=== PATIENT | male | born 1970 | race Caucasian/White ===

== ENCOUNTER → 2017-06-18 | Outpatient (CLI) | payer OTHER | LOC: FIMAGING 09:01 | PROVIDERS: ATTEND Family Medicine | DX: M25.511 Pain in right shoulder (principal) ==

== ENCOUNTER 2017-08-07 16:05 | Inpatient (IN) | payer OTHER ==
--- NOTE | 2017-08-07 16:16 | EDPHY ---
H & P Stated Complaint: [place]/HAD MRI/DR SAID WAS ABNORMAL Time Seen by Provider: 08/07/17 16:16 HPI/ROS: CHIEF COMPLAINT: Headache, abnormal outpatient MRI HISTORY OF PRESENT ILLNESS: The patient is referred to the emergency department by his neurologist Dr. Wilson. The patient has had a 5 month history of a chronic daily headache. The patient has endorse some symptoms of blurry vision in the morning. He reportedly has been using ibuprofen every morning for management of his symptoms. The patient does tell me he has had some very mild symptoms of impaired fluency of his speech. He was scheduled to see an category development analyst for evaluation of his visual complaints next week. The patient was noted to have a very large subfalcine mass noted on his MRI. REVIEW OF SYSTEMS: A comprehensive 10 point review of systems is otherwise negative aside from elements mentioned in the history of present illness. Source: Patient - Personal History Current Tetanus/Diphtheria Vaccine: Yes - Medical/Surgical History Hx Asthma: No Hx Chronic Respiratory Disease: No Hx Diabetes: No Hx Cardiac Disease: No Hx Renal Disease: No Hx Cirrhosis: No Hx Alcoholism: No Hx HIV/AIDS: No Hx Splenectomy or Spleen Trauma: No Other PMH: L ACL - Social History Smoking Status: Never smoked - Physical Exam Exam: General Appearance: Alert, no distress Eyes: Pupils equal and round no pallor or injection ENT, Mouth: Mucous membranes moist Respiratory: There are no retractions, lungs are clear to auscultation Cardiovascular: Regular rate and rhythm Gastrointestinal: Abdomen is soft and nontender, no masses, bowel sounds normal Neurological: Alert and oriented x4, 5/5 strength noted all 4 extremities, cranial nerves 2-12 intact, no gross visual field deficits present, speech fluent Skin: Warm and dry, no rashes Musculoskeletal: Neck is supple nontender Extremities: symmetrical, full range of motion Psychiatric: Patient is oriented X 3, there is no agitation Constitutional: Initial Vital Signs Temperature (C) 36.3 C 08/07/17 16:10 Heart Rate 98 08/07/17 16:10 Respiratory Rate 16 08/07/17 16:10 Blood Pressure 160/103 H 08/07/17 16:10 O2 Sat (%) 96 08/07/17 16:10 O2 Delivery Mode Room Air Allergies/Adverse Reactions: No Known Allergies Allergy (Verified 08/07/17 16:09) Home Medications: Medication Instructions Recorded Lisinopril 08/07/17 Medical Decision Making - Diagnostics Imaging Results: Brain MRI: Impression: 1. 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 2. Rightward subfalcine herniation and early uncal herniation. ED Course/Re-evaluation: I discussed the case with his neurologist prior to arrival. I reviewed his MRI after he presented to the emergency department. I consulted with Dr. Jorge A Pickens from Neurosurgery. The patient had an IV established. Preoperative screening labs have been ordered. The patient did received 10 mg of IV Decadron. The patient was seen in consultation by Dr. Christopher Banks. The patient received an additional 1 g of Keppra. The patient will be admitted to the neurosurgical service for biopsy and further workup. Differential Diagnosis: Differential diagnosis considered includes brain tumor, intracranial hemorrhage , stroke - Data Points Laboratory Results: Laboratory Results 08/07/17 16:25 08/07/17 16:25 08/07/17 08/07/17 08/07/17 16:30 16:25 16:25 WBC 7.81 10^3/uL 10^3/uL (3.80-9.50) RBC 5.09 10^6/uL 10^6/uL (4.40-6.38) Hgb 16.1 g/dL g/dL (13.7-17.5) Hct 44.6 % % (40.0-51.0) MCV 87.6 fL fL (81.5-99.8) MCH 31.6 pg pg (27.9-34.1) MCHC 36.1 g/dL g/dL (32.4-36.7) RDW 12.1 % % (11.5-15.2) Plt Count 286 10^3/uL 10^3/uL (150-400) MPV 10.1 fL fL (8.7-11.7) Neut % (Auto) 72.9 % % (39.3-74.2) Lymph % (Auto) 19.1 % % (15.0-45.0) [place] % (Auto) 5.6 % % (4.5-13.0) Eos % (Auto) 1.5 % % (0.6-7.6) Baso % (Auto) 0.5 % % (0.3-1.7) Nucleat RBC Rel Count 0.0 % % (0.0-0.2) Absolute Neuts (auto) 5.69 10^3/uL 10^3/uL (1.70-6.50) Absolute Lymphs (auto) 1.49 10^3/uL 10^3/uL (1.00-3.00) Absolute Monos (auto) 0.44 10^3/uL 10^3/uL (0.30-0.80) Absolute Eos (auto) 0.12 10^3/uL 10^3/uL (0.03-0.40) Absolute Basos (auto) 0.04 10^3/uL 10^3/uL (0.02-0.10) Absolute Nucleated RBC 0.00 10^3/uL 10^3/uL (0-0.01) Immature Gran % 0.4 % % (0.0-1.1) Immature Gran # 0.03 10^3/uL 10^3/uL (0.00-0.10) PT 13.2 SEC SEC (12.0-15.0) INR 1.01 (0.83-1.16) APTT 26.6 SEC SEC (23.0-38.0) Sodium 142 mEq/L mEq/L (134-144) Potassium 3.8 mEq/L mEq/L (3.5-5.2) Chloride 102 mEq/L mEq/L (97-110) Carbon Dioxide 26 mEq/l mEq/l (22-31) Anion Gap 14 mEq/L mEq/L (8-16) BUN 20 mg/dL mg/dL (7-23) Creatinine 1.0 mg/dL mg/dL (0.7-1.3) Estimated GFR > 60 Glucose 118 mg/dL H mg/dL (70-100) Calcium 10.4 mg/dL mg/dL (8.5-10.4) Medications Given: Discontinued Medications Dexamethasone (Decadron Injection) 10 mg IVP EDNOW ONE Stop: 08/07/17 16:42 Last Admin: 08/07/17 16:44 Dose: 10 mg Departure - Departure Disposition: [facility] Acute 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
[2017-08-07 16:41] LABS: % IMMATURE GRANULYOCYTES 0.4 % (0.0-1.1); ABSOLUTE IMMATURE GRANULOCYTES 0.03 10^3/uL (0.00-0.10); ADD DIFF? NO; ADD MORPH? NO; ADD SCAN? NO; ATYPICAL LYMPHOCYTE FLAG 0 (0-99); FRAGMENT RBC FLAG 0 (0-99); HEMATOCRIT 44.6 % (40.0-51.0); HEMOGLOBIN 16.1 g/dL (13.7-17.5); LEFT SHIFT FLG 0 (0-99); LIPEMIA HEMOLYSIS FLAG 90 (0-99); MEAN CELL HEMOGLOBIN 31.6 pg (27.9-34.1); MEAN CELL HEMOGLOBIN CONCENTR. 36.1 g/dL (32.4-36.7); MEAN CELL VOLUME 87.6 fL (81.5-99.8); MEAN PLATELET VOLUME 10.1 fL (8.7-11.7); PLATELET CLUMPS FLAG 0 (0-99); PLATELET COUNT 286 10^3/uL (150-400); RED BLOOD CELL COUNT 5.09 10^6/uL (4.40-6.38); RED CELL DISTRIBUTION WIDTH 12.1 % (11.5-15.2)
[2017-08-07] MEDS ORDERED: DEXAMETHASONE 10 MG/ML VIAL IVP ONE (16:41)
[2017-08-07 17:03] LABS: ANION GAP 14 mEq/L (8-16); CALCIUM 10.4 mg/dL (8.5-10.4); CARBON DIOXIDE 26 mEq/l (22-31); CHLORIDE 102 mEq/L (97-110); GLOMERULAR FILTRATION RATE > 60; GLUCOSE 118 mg/dL (70-100); POTASSIUM 3.8 mEq/L (3.5-5.2); SODIUM 142 mEq/L (134-144)
[2017-08-07 17:09] LABS: APTT 26.6 SEC (23.0-38.0); INR 1.01 (0.83-1.16); PROTIME(PATIENT) 13.2 SEC (12.0-15.0)
[2017-08-07] MEDS ORDERED: ACETAMINOPHEN 325 MG TAB PO PRN (17:10)
[2017-08-07] MEDS ORDERED: NS 1,000 ML IV SCH (17:15)
[2017-08-07] MEDS ORDERED: levETIRAcetam 1,000 MG in NS 100 ML IV ONE (17:17)
[2017-08-07] MEDS ORDERED: IOPAMIDOL (ISOVUE-300) 100 ML BTL ONE (17:36)
--- NOTE | 2017-08-07 18:40 | GHP ---
[f rep st] HISTORY AND PHYSICAL DATE OF ADMISSION: 08/07/2017 CHIEF COMPLAINT: Headache with abnormal outpatient MRI. The patient was seen in the Emergency Department, both by myself and Dr. Banks, at 1645 hours. One hour was spent with the patient in room 8 reviewing through history, physical exam, and imaging. HISTORY OF PRESENT ILLNESS: The patient is, otherwise, a healthy 46-year-old male who was referred t o the Emergency Department by his neurologist, Dr. Wilson. The patient has had a 5-month history of chronic daily headaches. The patient also states that he has some blurry vision in the morning that takes a little while for it to clear up. He reportedly has been using ibuprofen every morning for m anagement of his symptoms. The patient does tell the emergency room staff, as well as us, that he mckeon s had some mild symptoms with impaired fluency of his speech. He feels that he has had more difficul t issues with concentration over the past year, as well as some issues with getting the correct name of his child. He has 3 children. He saw his PCP. There have been some issues with trying to get ap proval for an MRI that was ordered by his PCP, and was forced to see a specialist, and the specialist did have some issues with getting the MRI, but eventually this was obtained. The MRI showed a very large subfalcine mass noted on the MRI. He was scheduled to see an ship's pilot for evaluation of some visual complaints this next week. The patient was seen in the Emergency Department in room 8, both by myself and Dr. Banks. His was present as well. REVIEW OF SYSTEMS: A comprehensive 10-point review of systems was performed. Otherwise, negative as davion from what is mentioned in HPI. The patient does also state that he has some chronic back pain, b ut no significant radicular symptoms. He does state that on some imaging he had noticed a mass in hi s right kidney, but has not had any further evaluation per reports. PAST MEDICAL HISTORY: Torn left ACL. PAST SURGICAL HISTORY: Left ACL reconstruction. MEDICATIONS: Lisinopril. Please see med rec form. ALLERGIES: No known drug allergies. FAMILY HISTORY: No reported history of brain mass or tumor. IMMUNIZATIONS: Reported up to date. TRAVEL: The patient does frequently travel from here to the [place]. PHYSICAL EXAMINATION: GENERAL: This is an awake, alert, oriented male, in no acute distress. He is able to follow commands appropriately. VITAL SIGNS: Most recent blood pressure 160/103, with a MAP of 122, heart rate of 98; 16 respirations, 96% on room air, temperature 36.3. HEENT. Head is normo cephalic, atraumatic. Pupils are equal, round, reactive to light. EOMIs intact. Full visual james by confrontation. Ears are patent. Nose is patent. NECK: Soft and supple. No midline tenderness . Full range of motion in flexion, extension, lateral bending, rotation. RESPIRATORY/CARDIAC: No r ales, rhonchi, wheeze, or rub. Clear to auscultation bilaterally. ABDOMEN: Soft, nontender. No pe ritoneal signs. AND RECTAL: Deferred. NEURO: The patient is awake, alert, oriented to name, pl shea, location, date, time, and situation. Memory is intact to immediate, past, and current events. Speech no aphasia, dysarthria, dysphonia at this time. Cranial nerves 2-12 grossly intact. Motor, t he patient has 5/5 strength in all muscle groups of bilateral upper and lower extremities to include deltoids, biceps, triceps, brachioradialis, wrist flexion, extensors, staff psychologist, intrinsic fingers, iliops oas, quadriceps, hamstring, plantar flexion, dorsiflexion, EHL testing. Sensation is grossly intact to light touch throughout all dermatome distributions upper extremities. Negative straight leg raise . Negative NATHALIA test. Reflexes of biceps, triceps, brachioradialis, knee jerk, and ankle jerk are 2+/4. Toes are downgoing bilaterally. Vizcaino's negative. Babinski negative. No evidence of clonu s. The patient does have a slight right pronator drift. MEDICAL DECISION MAKING/DIAGNOSTIC STUDIES: Laboratory tests obtained 08/07/2017, shows a white coun t of 7.1, H and H of 16.1 and 44.6, and platelet count of 286. Coags on 08/07/2017, shows a PT of 13 .2, INR of 1.01, and PTT of 26.6. Chemistry on 08/07/2017, shows sodium 142, potassium 3.8, chloride 102, CO2 26, BUN 20, creatinine 1.0, and a glucose of 118. DIAGNOSTIC STUDIES: MRI of the brain with and without contrast shows a nonenhancing heterogeneous le ft cerebral mass involving the left basal ganglia and left frontal lobe, the left temporal lobe, left side of the mesencephalon, left cerebral peduncle, and crossing the posterior body of the corpus gaye losum with a differential diagnosis of gliomatosis cerebri versus lymphoma, rightward subfalcine jasmin iation, and early uncal herniation, with recommendations for neurosurgery consult. IMPRESSION: 1. A large 4.6 x 4.3 cm nonenhancing heterogeneous left cerebral mass involving the left basal gangl ia, and left frontal lobe, left temporal lobe, left-side of the mesencephalon, and left cerebral pedu ncle that crosses the posterior body of the corpus callosum. 2. Headaches for the last 5 months. 3. History of hypertension. The patient takes lisinopril. DISCUSSION: The patient is a 46-year-old male who is from the [place] and lives here in the [facility]. He has a family in the area. He was seen by his primary care doctor, then Neurology, and sung bermudezually an MRI was approved from his insurance company that shows a mass as noted above. He was seen in the Emergency Department, both by myself and Dr. Banks. One hour was spent with the patient in the Emergency Department going over images, physical exam, and plan at this time. Dr. Ng will take the patient tomorrow for brain biopsy. This will further differentiate his care and direct his care in the future. All questions and concerns are answered. The patient understands and agrees, as does his who is present throughout the visit. /[id number]/MODL
[2017-08-07] MEDS ORDERED: traMADol 50 MG TAB PO PRN (19:55)
[2017-08-07] MEDS ORDERED: LORazepam 0.5 MG TAB PO ONE (20:00)
[2017-08-07] MEDS: FAMOTIDINE 20 MG TAB PO SCH (20:56)
[2017-08-07] MEDS: levETIRAcetam 750 MG in NS 100 ML IV SCH (20:56)
[2017-08-07] MEDS: DEXAMETHASONE 4 MG/ML VIAL IVP SCH ×2 (21:55→22:19)
[2017-08-08] MEDS: DEXAMETHASONE 4 MG/ML VIAL IVP SCH (05:15)
[2017-08-08] MEDS ORDERED: GADOBUTROL 10 ML VIAL IVP ONE (06:12)
[2017-08-08] MEDS ORDERED: CHLORHEXIDINE GLUC HIBICLENS 118 ML BTL TP ONE (07:13)
[2017-08-08] MEDS ORDERED: BACITRACIN ZINC 14.2 GM OINTTUBE TP ONE (07:13)
[2017-08-08] MEDS ORDERED: THROMBIN (BOVINE) 5,000 UNIT VIAL TP ONE (07:14)
[2017-08-08] MEDS ORDERED: LIDO/EPI 1% **for epidural** 30 ML SDV ONE (07:14)
[2017-08-08] MEDS ORDERED: BACITRACIN 50,000 UNITS/10 ML SYR IRR ONE (07:14)
--- NOTE | 2017-08-08 07:50 | PDANEPAE ---
ANE History of Present Illness here for brain tumor biopsy ANE Past Medical History - Cardiovascular History Hx Hypertension: No Hx Arrhythmias: No Hx Chest Pain: No Hx Coronary Artery / Peripheral Vascular Disease: No Hx CHF / Valvular Disease: No Hx Palpitations: No - Pulmonary History Hx COPD: No Hx Asthma/Reactive Airway Disease: No Hx Recent Upper Respiratory Infection: No Hx Oxygen in Use at Home: No Hx Sleep Apnea: No Sleep Apnea Screening Result - Last Documented: Positive - Endocrine History Hx Diabetes: No Hypothyroid: No Hyperthyroid: No Obesity: no - Renal History Hx Renal Disorders: No - Liver History Hx Hepatic Disorders: No - Neurological & Psychiatric Hx Hx Neurological and Psychiatric Disorders: No - Chronic Pain History Chronic Pain: No ANE Review of Systems Review of systems is: negative Review of Systems: - Exercise capacity Exercise capacity: >=4 METS ANE Patient History - Allergies Allergies/Adverse Reactions: No Known Allergies Allergy (Verified 08/07/17 16:09) - Home Medications Home medications: home medication list seen and reviewed Home Medications: Ibuprofen [Motrin (*)] 400 mg PO Q6H PRN 08/07/17 [Last Taken Unknown] Lisinopril [Zestril 20 mg (*)] 20 mg PO DAILY 08/07/17 [Last Taken 08/06/17] - NPO status NPO Status: no food or drink >8 hours NPO Since - Liquids (Date): 08/07/17 NPO Since - Liquids (Time): 23:00 NPO Since - Solids (Date): 08/07/17 NPO Since - Solids (Time): 20:00 - Anes Hx Anes Hx: no prior problems - Smoking Hx Smoking Status: Never smoked ANE Labs/Vital Signs - Labs Result Diagrams: 08/07/17 16:25 08/07/17 16:25 - Vital Signs Blood Pressure: 153/103 Heart Rate: 107 Respiratory Rate: 16 O2 Sat (%): 95 Height: 180.34 cm Weight: 95.028 kg ANE Physical Exam - Airway Neck exam: FROM
[2017-08-08] MEDS ORDERED: MIDAZOLAM 2 MG/2 ML VIAL IVP ONE (08:03)
[2017-08-08] MEDS ORDERED: ceFAZolin 2 GM/SWFI 20 ML SYR IVP ONE (08:13)
[2017-08-08] MEDS ORDERED: LR 1,000 ML IV ONE (08:14)
[2017-08-08] MEDS ORDERED: PROPOFOL/EMULSION 500 MG/50 ML BOTTLE IV ONE (08:17)
[2017-08-08] MEDS ORDERED: fentaNYL 100 MCG/2 ML INJ ONE ×3 (08:21→10:48)
[2017-08-08] MEDS ORDERED: ALBUTEROL 3 ML DEYVIAL IH PRN (09:41)
[2017-08-08] MEDS ORDERED: ONDANSETRON 4 MG/2 ML VIAL IVP PRN (09:41)
[2017-08-08] MEDS ORDERED: HYDROCODONE/APAP 5/325 TAB PO PRN (09:41)
[2017-08-08] MEDS ORDERED: OXYCODONE/APAP 5/325 TAB PO PRN (09:41)
[2017-08-08] MEDS ORDERED: NALOXONE HCL 0.4 MG/ML INJ IVP PRN (09:41)
[2017-08-08] MEDS ORDERED: fentaNYL 100 MCG/2 ML INJ IVP PRN (09:41)
--- NOTE | 2017-08-08 10:08 | GOP ---
[f rep st] OPERATIVE REPORT DATE OF OPERATION: 08/08/2017 SURGEON: Jayant Ng MD RHEUMATOLOGIST: Mary Alarcon PA-C PREOPERATIVE DIAGNOSIS: Left basal ganglia brain mass. POSTOPERATIVE DIAGNOSIS: Left basal ganglia brain mass. PROCEDURE PERFORMED: FINDINGS: Successful stereotactic brain biopsy. SPECIMENS: Left basal ganglia brain mass biopsy 1 and left basal ganglia brain mass biopsy 2. There were no drains. ESTIMATED BLOOD LOSS: Less than 5 cc. DESCRIPTION OF PROCEDURE: After informed consent was obtained from the patient, the patient was brou ght to the operating room and was placed in supine position on the operating table. A formal time-ou t was performed, identifying the patient by name, medical record number, and date of . Preopera tive antibiotics were given. The endotracheal tube was placed, and general endotracheal anesthesia w as smoothly induced. The patient was then placed in the [facility] and the Stealth unit was juliann tered to the scalp using known surface landmarks and was then checked for accuracy. This was then us ed to find the entry point of the pre-planned trajectories from the left medial frontal region down t o the basal ganglia tumor. A 2.5 cm incision was marked over this point, and 10 cc of 1% lidocaine w ith epinephrine was infiltrated in the skin for hemostasis. The head was then prepped and draped in the normal sterile fashion. The skin incision was made using a 10 blade scalpel, and subcutaneous ti ssues were dissected using monopolar electrocautery. A self-retaining retractor was placed. Using t Stealth, again, the entry point was localized, and a bur hole was created using the legal recovery specialist at this point. The Dwellable Navigus system was then connected to the skull using the supplied hardware, and the Navigus system was then aligned for the 1st pre-planned trajectory. The needle was set to th e appropriate depth, and the dura was opened using monopolar electrocautery. The needle was then pas sed to its depth under real-time Stealth guidance, and 4 biopsies were taken from the cardinal direct ions with the biopsy needle. These were sent for pathology. I had planned a 2nd trajectory to a slightly different part of the tumor with different imaging elida cteristics, and the Navigus system was reset to this trajectory. The needle was again passed, and an other 4 biopsies were taken. The frozen section did come back as lesional tissue with likely low-gra de pathology. At this point, the needle was removed. No further bleeding was visualized. The wound was copiously irrigated using bacitracin irrigation. The Navigus system was removed. A piece of Ge lfoam was placed over the bur hole, and a Synthes bur hole cover was placed. The wound was again engraver copperplate iously irrigated using bacitracin irrigation. The galea was closed using interrupted 2-0 Vicryl's an d the skin was closed using a running 4-0 Monocryl. The patient was then awakened in the operating r oom. He was removed from the [facility] pins and transferred to the PACU in stable condition. There w ere no operative complications. I was scrubbed and present for the entire procedure. PROCEDURE: 1. Left frontal stereotactic brain biopsy. 2. Use of Stealth stereotactic neuronavigation for brain biopsy. BRIEF CLINICAL HISTORY: The patient is a 46-year-old man who presented with 5 months of increasing h eadaches. He had an outpatient MRI done yesterday which found this large mass and was sent to the em ergency department. He has a very slight, almost invisible pronator drift on the right arm, but othe rwise is essentially asymptomatic other than headaches. This tumor does not have any contrast enhanc ement but is quite sizable, growing through the basal ganglia, internal capsule, and thalamus into th e upper mid brain. He was scheduled for a stereotactic biopsy today, as this will likely be a non-op erative ultimate treatment. FLUIDS AND URINE OUTPUT: Per the anesthesia record. /[id number]/MODL
[2017-08-08] MEDS ORDERED: ceFAZolin 2 GM/SWFI 2 GM/20 ML SYR IVP ONE (10:25)
[2017-08-08] MEDS ORDERED: BISACODYL 10 MG SUPP PR PRN (10:26)
[2017-08-08] MEDS ORDERED: ONDANSETRON DISINTEGRATING 4 MG TAB PO PRN (10:26)
[2017-08-08] MEDS ORDERED: HYDROCODONE/APAP 10/325 TAB PO PRN (10:26)
[2017-08-08] MEDS ORDERED: ACETAMINOPHEN 325 MG TAB PO PRN (10:26)
[2017-08-08] MEDS ORDERED: LACTULOSE 20 GM/30 ML UDCUP PO PRN (10:26)
[2017-08-08] MEDS ORDERED: DIAZEPAM 5 MG TAB PO PRN (10:26)
[2017-08-08] MEDS ORDERED: MAGNESIUM HYDROXIDE 30 ML UDCUP PO PRN (10:26)
[2017-08-08] MEDS ORDERED: POLYETHYLENE GLYCOL 3350 17 GM PKT PO PRN (10:26)
[2017-08-08] MEDS ORDERED: hydrALAZINE 20 MG/ML VIAL IVP PRN (10:26)
[2017-08-08] MEDS ORDERED: diphenhydrAMINE 25 MG CAP PO PRN (10:26)
--- NOTE | 2017-08-08 10:50 | POSTOPPROG ---
Post Op Note Date of Operation: 08/08/17 Surgeon: Jayant Ng [employer] Teacher: Demetria Up Anesthesia: GET(General Endotracheal) Pre-op Diagnosis: left basal ganglia brain mass Post-op Diagnosis: same Procedure: left craniotomy for stereotactic needle biopsy of left basal ganglia mass Inf/Abcess present in the surg proc area at time of surgery?: No Depth: Organ Space SOAP Progress Note Assessment/Plan: Assessment: Plan: 08/08/17 10:46 S: Patient in PACU. Stable, still waking up. O: NAD, VSS PERRL, EOMI No droop CN II-XII grossly intact BUE 5/5=- may have slight weakness on right but getting better as he wakes up more BLE 5/5 incision c/d/i A: 46 yo male sp left craniotomy for stereotactic needle biopsy of left basal ganglia brain mass P: -Admit to SDU -Postop head CT later today -Q2 hour neuro checks -SBP <140 -Advance diet as tolerated -Final path pending -Frozen path gave definite lesional tissue -Decadron 3mg q8 until pathology comes back -Will consult oncology when final path is back -PT.OT.POST HOLE DIGGING MACHINE OPERATOR -Seen by Dr. Ng in PACU Objective: Vital Signs Temp Pulse Resp BP Pulse Ox 36.6 C 102 H 16 142/82 H 96 08/08/17 10:40 08/08/17 10:40 08/08/17 10:40 08/08/17 10:40 08/08/17 10:40 08/07/17 08/08/17 08/09/17 05:59 05:59 05:59 Intake Total 1714 1300 Balance 1714 1300 PT 13.2 SEC (12.0-15.0) 08/07/17 16:30 INR 1.01 (0.83-1.16) 08/07/17 16:30
[2017-08-08] MEDS: NS W/ 20 KCl/L 1,000 ML IV SCH ×2 (11:50→23:11)
[2017-08-08] MEDS ORDERED: DEXAMETHASONE 1.5 MG TAB PO SCH ×2 (12:00→16:00)
[2017-08-08] MEDS: FAMOTIDINE 20 MG TAB PO SCH ×2 (12:23→22:15)
[2017-08-08] MEDS: levETIRAcetam 750 MG in NS 100 ML IV SCH ×2 (12:47→20:23)
[2017-08-08] MEDS: HYDROmorphONE/DILAUDID 1 MG/ML INJ IVP PRN ×5 (13:21→20:31)
--- NOTE | 2017-08-08 15:56 | ASMTCMCOM ---
CM Note CM Note Notes: Patient admitted for investigation of brain mass. Today, he had a L crani for needle biopsy. He is stable and recovering in the ICU. PT/OT/INTERNATIONAL MARKETING COORDINATOR will follow patient tomorrow. Oncology will be consulted when pathology is back. Patient lives with his and children. Discharge needs TBD; however, Case Management will follow. Date Signed: 08/08/2017 03:55 PM Electronically Signed By:Sabiha Baldwin RN
[2017-08-08] MEDS: ONDANSETRON 4 MG/2 ML VIAL IVP PRN ×2 (17:10→19:29)
[2017-08-08] MEDS: SENNOSIDES/DOCUSATE SODIUM TAB PO SCH (20:55)
[2017-08-08] MEDS: FAMOTIDINE 20 MG/NACL 50 ML IV SCH (21:14)
[2017-08-08] MEDS ORDERED: DEXAMETHASONE 4 MG/ML VIAL IVP SCH (22:00)
[2017-08-08] MEDS ORDERED: PROMETHAZINE HCL 25 MG/ML INJ IVP PRN (22:00)
[2017-08-09] MEDS: HYDROmorphONE/DILAUDID 1 MG/ML INJ IVP PRN ×3 (03:05→08:56)
[2017-08-09 03:10] VITALS: TEMP 97.9
--- NOTE | 2017-08-09 08:23 | NEUSURGPN ---
Date of Surgery: 08/08/17 Post Op Day: 1 Assessment/Plan: Assessment: 46 yo male s/p left craniotomy for stereotactic needle biopsy of left basal ganglia brain mass POD #1 Plan: -admitted to SDU -pt seen by Dr Ng and ok for dc later today-RN updated and patient in agreement -postop head CT reviewed -Q2 hour neuro checks -SBP <140 -diet as tolerated -Final path pending -Frozen path gave definite lesional tissue -Decadron 3mg q8 until pathology comes back -we will consult oncology when final path is back -PT/OT/MEDIATOR -seen/examined by Dr. Ng this am Subjective: Awake and alert. Rested thru the night. No neck/chest/abd or gu complaints Objective: NAD, AFVSS PERRLA, EOMI No droop CN II-XII grossly intact BUE 5/5= BLE 5/5= incision c/d/i Neuro Check Frequency: per routine Urinary Catheter in Place: No - Physician Discussed Patient with Dr.: Ng Patient Seen by Dr.: Ng Neurosurgery Physical Exam - Vitals, I&O, Labs I and O 08/08/17 08/09/17 08/10/17 05:59 05:59 05:59 Intake Total 1714 3836 Balance 1714 3836 Weight 94.801 kg 95.028 kg Intake: Oral (ml) 1000 650 IV Intake (ml) 714 2528 IV Infused (ml) 658 NS W/ 20 KCl/L 1,000 ml @ 658 100 mls/hr IV CONT FRANK Rx#:[id number] Other: Number of Voids Toilet 2 1 Number of Emesis 2 Occurrences Vital Signs Temp Pulse Resp BP Pulse Ox 36.6 C 69 10 L 102/72 90 L 08/09/17 03:00 08/09/17 05:00 08/09/17 05:00 08/09/17 05:00 08/09/17 05:00 ICD10 Worksheet Patient Problems: Problems Problem Status Onset Tumor of central nervous system Acute
[2017-08-09 08:26] VITALS: RESP 16
[2017-08-09] MEDS ORDERED: DEXAMETHASONE 4 MG/ML VIAL PO SCH (08:27)
[2017-08-09] MEDS ORDERED: levETIRAcetam 250 MG TAB PO SCH (09:00)
[2017-08-09] MEDS: SENNOSIDES/DOCUSATE SODIUM TAB PO SCH (10:28)
[2017-08-09] MEDS: FAMOTIDINE 20 MG/NACL 50 ML IV SCH (10:39)
[2017-08-09 12:35] VITALS: BP 128/88; PULSE 74; O2SAT 94
[2017-08-09] MEDS ORDERED: DEXAMETHASONE 4 MG TAB PO SCH (14:00)
[2017-08-09] MEDS ORDERED: DEXAMETHASONE 1.5 MG TAB PO SCH (14:00)
--- NOTE | 2017-08-09 16:42 | ASDISCHSUM ---
Discharge Information Plan Status:Home with No Needs Medically Cleared to Leave:08/08/2017 Discharge Date:08/09/2017 12:01 PM D/C Disposition: ADT D/C Disposition:Home, Routine, Self-Care Projected Discharge Date:08/09/2017 12:00 AM Transportation at D/C: Discharge Delay Reason: Follow-Up Date:08/09/2017 12:00 AM Discharge Slot: Final Diagnosis: Placement Information Patient Contact Information Contact Name:HADLEY Relationship: Address:[address] City:[place] Alternate Phone: State/Zip Code:[place] [address] Email: Financial Information Financial Class:HMO and PPO Plans Primary Plan Desc:ALIYA IZQUIERDO PPO Primary Plan Number:[id number] Secondary Plan Desc: Secondary Plan Number: Assessment Information [facility] CM Progress Note CM Note CM Note Notes: Patient admitted for investigation of brain mass. Today, he had a L crani for needle biopsy. He is stable and recovering in the ICU. PT/OT/PUSH CONNECTOR ASSEMBLER will follow patient tomorrow. Oncology will be consulted when pathology is back. Patient lives with his and children. Discharge needs TBD; however, Case Management will follow. Date Signed: 08/08/2017 03:55 PM Electronically Signed By:Sabiha Baldwin RN Intervention Information
== END 2017-08-09 12:01 | disposition home or self-care (01) | DRG 27 ==
LOC: F2N 18:42
PROVIDERS: ADMIT Neurological Surgery; ATTEND Neurological Surgery
PROC: 00B Central Nervous System and Cranial Nerves, Excision (ICD-10-PCS; principal; 2017-08-07)
DX: C71.0 Malignant neoplasm of cerebrum, except lobes and ventricles (principal); I10 Essential (primary) hypertension
CPT/HCPCS: 92523-GN; 96374; 97161-GP; 97166-GO; A9585; C1713; J0690; J1100; J1170; J1953; J2250; J2405; J2704; J3010; Q9967

== ENCOUNTER → 2017-08-30 | Outpatient (CLI) | payer OTHER | LOC: FIMAGING 15:26 | PROVIDERS: ATTEND Nurse Practitioner | DX: R05 Cough (principal); C71.9 Malignant neoplasm of brain, unspecified ==

== ENCOUNTER → 2017-11-15 | Outpatient (CLI) | payer OTHER ==
[~2017-11-15] MED LIST: GADOBUTROL 10 ML VIAL IVP ONE
== END ==
LOC: FIMAGING 13:37
PROVIDERS: ATTEND Internal Medicine Hematology & Oncology
DX: C71.9 Malignant neoplasm of brain, unspecified (principal)
CPT/HCPCS: A9585

== ENCOUNTER → 2018-01-09 | Outpatient (CLI) | payer OTHER | LOC: FIMAGING 12:13 | PROVIDERS: ATTEND Internal Medicine Hematology & Oncology | DX: C71.9 Malignant neoplasm of brain, unspecified (principal) | CPT/HCPCS: A9585 ==

== ENCOUNTER → 2018-07-11 | Outpatient (CLI) | payer OTHER | LOC: FIMAGING 10:13 | PROVIDERS: ATTEND Internal Medicine Hematology & Oncology | DX: Z08 Encounter for follow-up examination after completed treatment for malignant neoplasm (principal); C71.9 Malignant neoplasm of brain, unspecified | CPT/HCPCS: A9585 ==

== ENCOUNTER → 2018-10-28 | Outpatient (CLI) | payer OTHER | LOC: FIMAGING 11:53 | PROVIDERS: ATTEND Internal Medicine Hematology & Oncology | DX: Z08 Encounter for follow-up examination after completed treatment for malignant neoplasm (principal); C71.8 Malignant neoplasm of overlapping sites of brain | CPT/HCPCS: A9585 ==

== ENCOUNTER → 2019-02-25 | Outpatient (CLI) | payer OTHER | LOC: FIMAGING 10:11 ==